=== PATIENT | female | born 1935 | race Caucasian/White ===

== ENCOUNTER 2016-11-27 10:03 | Emergency (ER) | payer MEDICARE ==
[~2016-11-27] VITALS: Ht 154.9 cm; Wt 52.0 kg
[~2016-11-27 10:03] MED LIST: ALPH200C3 PO; CARB25TA PO; CO Q100C9 PO; CURCPOW PO; DEPA125T PO; OCUVTAB PO; SYNT25TA PO; VITA200017 PO; [UNRECOGNIZED DRUG - CODE] PO
[2016-11-27 10:42] VITALS: RESP 18; TEMP 98.1
[2016-11-27 10:57] VITALS: BP_SYST 160; PULSE 95; RESP 18; TEMP 98.2; O2SAT 100
[2016-11-27] MEDS ORDERED: SINE25TA PO (11:02)
[2016-11-27] MEDS ORDERED: ALEN1TAB48 PO (11:02)
[2016-11-27] MEDS ORDERED: LEVO75TA3 PO (11:02)
[2016-11-27] MEDS ORDERED: COLA100C3 PO (11:02)
--- NOTE | 2016-11-27 11:04 | PD ---
HPI Chief Complaint: Fall Time Seen by Provider: 10:46 Travel History International Travel<30 days: No Contact w/Intl Traveler<30days: No Traveled to known affect area: No History of Present Illness HPI 81-year-old female with history of dementia, lives at an assisted care facility in a lockdown unit, was found this morning on the floor an hour after having been seen normal, patient is not able to tell staff what happened. She has ecchymosis about her right orbital area. She otherwise is able to move all 4 extremities. She is not a reliable historian. Modifying Factors: None Associated Signs & Symptoms: Fall, right eye ecchymosis, possible head injury Risk Factors: Elderly, dementia PFSH Past Medical History Heart Rhythm Problems: Yes (?) Cancer: No Cardiovascular Problems: No Chest Pain: Yes (APPROX 50% BLOCKAGE) Dementia: Yes Diabetes: No Diminished Hearing: Yes ([place]) Endocrine: No GERD: Yes Glaucoma: No Genitourinary: No Hepatitis: No Hiatal Hernia: No Hypertension: No Immune Disorder: No Medical other: Yes (SHINGLES, CERVICAL AND LUMBAR PROBLEM, HOLE IN LEFT EARDRUM ) Musculoskeletal: No Neurologic: No Parkinson's Disease: Yes Psychiatric: No Reproductive: No Respiratory: No Thyroid Disease: Yes (hypo) Menopausal: Yes Past Surgical History Abdominal Surgery: Yes (APPY-EXP LAP FOR GANGRENE OF ABDOMEN) Appendectomy: Yes Cardiac Surgery: No Ear Surgery: No Endocrine Surgery: No Eye Surgery: Yes (CATRACT EXTRACTION RIGHT EYE) Genitourinary Surgery: No Gynecologic Surgery: Yes (TOTAL ABDOMINAL HYSTERECTOMY) Hysterectomy: Yes Oral Surgery: Yes (TMJ REPAIR 2000) Pacemaker: No Thoracic Surgery: No Other Surgery: Yes (HYSTERECTOMY,APPEND) Family History Family Hypercholesterolemia: Yes Social History Alcohol Use: Yes (OCC WINE) Tobacco Use: No Substance Use: No Allergies-Medications (Allergen,Severity, Reaction): Coded Allergies: No Known Allergies (Verified , 11/27/16) Reported Meds & Prescriptions Reported Meds & Active Scripts Active Reported Mapap (Acetaminophen) 500 Mg Tab 1,000 Mg PO BID Donepezil 10 Mg Tab 10 Mg PO HS Mirtazapine 15 Mg Tab 15 Mg PO HS Alendronate (Alendronate Sodium) 70 Mg Tab 70 Mg PO Q7D ON SUNDAYS@0600 Levothyroxine (Levothyroxine Sodium) 75 Mcg Tab 75 Mcg PO DAILY @ 1000 Colace (Docusate Sodium) 100 Mg Cap 100 Mg PO BID Sinemet (Carbidopa-Levodopa) 25-100 Mg Tab 1 Tab PO TID Review of Systems ROS Limitations: Altered Mental Status (at baseline, not reliable historian) Physical Exam Narrative GENERAL: Well-nourished, well-developed elderly white female patient who is alert, awake, oriented to self, following directions, able to move all 4 extremities, not in acute distress. SKIN: Warm and dry. HEAD: Normocephalic. EYES: No scleral icterus. No injection or drainage. Right periorbital area ecchymosis. No orbital tenderness or step-offs. NECK: Supple, trachea midline. CARDIOVASCULAR: Regular rate and rhythm without murmurs, gallops, or rubs. CHEST: Nontender throughout without deformity or crepitance. No retractions or use of accessory muscles. RESPIRATORY: Breath sounds equal bilaterally. No accessory muscle use. GASTROINTESTINAL: Abdomen soft, non-tender, nondistended. Pelvis: Stable and nontender to palpation. Nontender range of motion of both hips. MUSCULOSKELETAL: No cyanosis, or edema. BACK: Nontender without obvious deformity. No CVA tenderness. EXTREMITIES: No clubbing, cyanosis, or edema. No joint tenderness, effusion, or edema noted. No obvious deformities. Data Data Last Documented VS Vital Signs Date Time Temp Pulse Resp B/P Pulse Ox O2 Delivery O2 Flow Rate FiO2 11/27/16 10:57 98.2 95 18 160/ 100 Room Air Orders Electrocardiogram (11/27/16 10:46) Complete Blood Count With Diff (11/27/16 10:46) Basic Metabolic Panel (Bmp) (11/27/16 10:46) Prothrombin Time / Inr (Pt) (11/27/16 10:46) Act Partial Throm Time (Ptt) (11/27/16 10:46) Urinalysis - C+S If Indicated (11/27/16 10:46) Ct Brain W/O Iv Contrast(Rout) (11/27/16 10:46) Ct Facial Bones W/O Iv Cont (11/27/16 10:46) Urine Culture (11/27/16 11:10) Potassium, Serum (K) (11/27/16 11:46) Labs Laboratory Tests Test 2/12/1211/27/16 11/27/16 11:00 11:10 13:00 White Blood Count 10.3 TH/MM3 Red Blood Count 3.99 MIL/MM3 Hemoglobin 12.5 GM/DL Hematocrit 36.8 % Mean Corpuscular Volume 92.1 FL Mean Corpuscular Hemoglobin 31.3 PG Mean Corpuscular Hemoglobin 34.0 % Concent Red Cell Distribution Width 14.6 % Platelet Count 285 TH/MM3 Mean Platelet Volume 7.6 FL Neutrophils (%) (Auto) 82.5 % Lymphocytes (%) (Auto) 10.1 % Monocytes (%) (Auto) 6.2 % Eosinophils (%) (Auto) 0.4 % Basophils (%) (Auto) 0.8 % Neutrophils # (Auto) 8.5 TH/MM3 Lymphocytes # (Auto) 1.0 TH/MM3 Monocytes # (Auto) 0.6 TH/MM3 Eosinophils # (Auto) 0.0 TH/MM3 Basophils # (Auto) 0.1 TH/MM3 CBC Comment DIFF FINAL Differential Comment Prothrombin Time 10.8 SEC Prothromb Time International 1.0 RATIO Ratio Activated Partial 24.0 SEC Thromboplast Time Sodium Level 139 MEQ/L Potassium Level 5.8 MEQ/L 4.3 MEQ/L Chloride Level 103 MEQ/L Carbon Dioxide Level 29.4 MEQ/L Anion Gap 7 MEQ/L Blood Urea Nitrogen 19 MG/DL Creatinine 1.09 MG/DL Estimat Glomerular Filtration 48 ML/MIN Rate Random Glucose 86 MG/DL Calcium Level 8.4 MG/DL Urine Color COLORLESS Urine Turbidity CLEAR Urine pH 7.5 Urine Specific [place] 1.004 Urine Protein NEG mg/dL Urine Glucose (UA) NEG mg/dL Urine Ketones NEG mg/dL Urine Occult Blood NEG Urine Nitrite NEG Urine Bilirubin NEG Urine Urobilinogen LESS THAN 2.0 MG/DL Urine Leukocyte Esterase NEG Urine WBC LESS THAN 1 /hpf Urine Squamous Epithelial <1 /hpf Cells Urine Bacteria MOD /hpf Urine Hyaline Casts 1 /lpf Microscopic Urinalysis Comment CULTURE INDICATED MDM Medical Decision Making Medical Screen Exam Complete: Yes Emergency Medical Condition: Yes Medical Record Reviewed: Yes Interpretation(s) EKG shows sinus rhythm at a rate of 94 bpm with no signs of acute ST-T changes. Laboratory Tests Test 11/27/16 11/27/16 11:00 11:10 Red Blood Count 3.99 MIL/MM3 (4.00-5.30) Neutrophils (%) (Auto) 82.5 % (16.0-70.0) Neutrophils # (Auto) 8.5 TH/MM3 (1.8-7.7) Activated Partial 24.0 SEC Thromboplast Time (24.3-30.1) Potassium Level 5.8 MEQ/L (3.5-5.1) Blood Urea Nitrogen 19 MG/DL (7-18) Creatinine 1.09 MG/DL (0.50-1.00) Estimat Glomerular Filtration 48 ML/MIN (>89) Rate Calcium Level 8.4 MG/DL (8.5-10.1) Urine Bacteria MOD /hpf (NONE) Last [address] 11/27/16 1046 Signed Impressions: Service Date/Time: November 11:39 - CONCLUSION: 1. There is no evidence of acute fracture. Sha Canada MD Head CT 11/27/16 1046 Signed Impressions: Service Date/Time: November 12:33 - CONCLUSION: 1. Age-related findings. 2. No acute intracranial findings. 3. Small air-fluid level right sphenoid sinus. 4. Right preorbital soft tissue edema. Joseph Rushing MD Differential Diagnosis Fall, right orbital ecchymosis, head injuryfractures versus acute intracranial injuries versus contusions Narrative Course CT of the brain and face did not reveal any signs of acute fractures or acute intracranial injuries. EKG shows no signs of dysrhythmias. Vital signs are stable in the ER. At this point, my plan would be to release the patient back to [facility]. Follow-up with primary care physician. Return for any worsening in symptoms as needed. Diagnosis Primary Impression: Fall Additional Impression: Facial contusion Disposition: 03 DISCHARGE TO SNF Condition: Stable Lennox Meyers MD Nov 27, 2016 11:04
[2016-11-27] MEDS ORDERED: DONE10TA7 PO (11:06)
[2016-11-27] MEDS ORDERED: MAPA500T PO (11:06)
[2016-11-27] MEDS ORDERED: MIRTA15 PO (11:06)
[2016-11-27 11:13] LABS: AUTOMATED NEUTROPHIL # 8.5 TH/MM3 (1.8-7.7); BASOPHIL # 0.1 TH/MM3 (0-0.2); BASOPHIL % 0.8 % (0.0-2.0); EOSINOPHIL % 0.4 % (0.0-4.0); HEMATOCRIT 36.8 % (35.0-46.0); HEMO FLAGS DIFF FINAL; LYMPH % 10.1 % (9.0-44.0); MEAN CELL VOLUME 92.1 FL (80.0-100.0); MEAN CORPUSCULAR HEMOGLOBIN 31.3 PG (27.0-34.0); MONO % 6.2 % (0.0-8.0); NEUT % 82.5 % (16.0-70.0); PLATELET COUNT 285 TH/MM3 (150-450); RED BLOOD COUNT 3.99 MIL/MM3 (4.00-5.30); RED CELL DISTRIBUTION WIDTH 14.6 % (11.6-17.2); WHITE BLOOD COUNT 10.3 TH/MM3 (4.0-11.0)
[2016-11-27 11:21] LABS: BACTERIA, URINE MOD /hpf; BLOOD, URINE NEG (NEG); GLUCOSE,URINE NEG (NEG); HYALINE CAST, URINE 1 /lpf (RARE); KETONE, URINE NEG (NEG); NITRITE,URINE NEG (NEG); PH, URINE 7.5 (5.0-8.5); SQUAMOUS EPITHELIAL CELL URINE <1 /hpf (0-5); URINE COLOR COLORLESS (YELLW/STRAW)
[2016-11-27 11:26] LABS: COMMENT (UR) CULTURE INDICATED; CULTURE IF INDICATED CULTURE INDICATED
[2016-11-27 11:27] LABS: PROTHROMBIN TIME - PATIENT 10.8 SEC (9.8-11.6)
[2016-11-27 11:36] LABS: BICARBONATE 29.4 MEQ/L (21.0-32.0)
[2016-11-27 11:46] LABS: POTASSIUM 5.8 MEQ/L (3.5-5.1)
--- NOTE | 2016-11-27 12:40 | RADRPT ---
EXAM DATE/TIME: 11/27/2016 11:39 [facility] COMPARISON: No previous studies available for comparison. INDICATIONS : Unwitnessed fall; right periorbital bruising. RADIATION DOSE: 55.62 CTDIvol (mGy) MEDICAL HISTORY : Dementia. Parkinsons. Cardiovascular disease SURGICAL HISTORY : Appendectomy. Hysterectomy. ENCOUNTER: Initial ACUITY: 1 day PAIN SCORE: 0/10 LOCATION: cranial TECHNIQUE: Volumetric scanning of the facial bones was performed. Using automated exposure control and adjustme nt of the mA and/or kV according to patient size, radiation dose was kept as low as reasonably achiev able to obtain optimal diagnostic quality images. FINDINGS: Brain atrophy is present. The sinuses are clear. There is no evidence of acute fracture. No orbital pneumatosis is identified. A spur projects off the nasal septum to the right. A janae bullosa is pre sent on the left. CONCLUSION: 1. There is no evidence of acute fracture. Sha Canada MD on November 27, 2016 at 12:37 Board Certified Radiologist. This report was verified electronically.
--- NOTE | 2016-11-27 13:34 | RADRPT ---
EXAM DATE/TIME: 11/27/2016 12:33 [facility] COMPARISON: CT BRAIN W/O CONTRAST, January 05, 2015, 14:45. INDICATIONS : Unwitnessed fall; facial injuries. RADIATION DOSE: 49.83 CTDIvol (mGy) MEDICAL HISTORY : Dementia. Parkinsons. Cardiovascular disease SURGICAL HISTORY : Appendectomy. Hysterectomy. ENCOUNTER: Initial ACUITY: 1 day PAIN SCALE: 5/10 LOCATION: cranial TECHNIQUE: Multiple contiguous axial images were obtained of the head. Using automated exposure control and adj ustment of the mA and/or kV according to patient size, radiation dose was kept as low as reasonably a chievable to obtain optimal diagnostic quality images. FINDINGS: CEREBRUM: Diffuse atrophy and chronic small vessel white matter ischemic change again seen. No evidence of midl ine shift, mass lesion, hemorrhage or acute infarction. No extra-axial fluid collections are seen. POSTERIOR FOSSA: The cerebellum and brainstem are intact. The 4th ventricle is midline. The cerebellopontine angle i s unremarkable. EXTRACRANIAL: Small air-fluid level in the right sphenoid sinus. Right preorbital soft tissue swelling. SKULL: The calvaria is intact. No evidence of skull fracture. CONCLUSION: 1. Age-related findings. 2. No acute intracranial findings. 3. Small air-fluid level right sphenoid sinus. 4. Right preorbital soft tissue edema. Joseph Rushing MD on November 27, 2016 at 13:30 Board Certified Radiologist. This report was verified electronically.
--- NOTE | 2016-11-28 13:46 | EKG ---
Date Performed: 11/27/2016 Time Performed: 11:06:24 PTAGE: 81 years EKG: Sinus rhythm WITH SINUS ARRHYTHMIA WITH SHORT FL INTERVAL POSSIBLE LEFT ATRIAL ENLARGEMENT MARKED LEFT AXIS DEVIA TION POSSIBLE RIGHT VENTRICULAR CONDUCTION DELAY ABNORMAL ECG PREVIOUS TRACING : 02/23/2016 17.08 Since previous tracing, no significant change noted DOCTOR: Lisa Quintana Interpretating Date/Time 11/28/2016 13:37:54
== END 2016-11-27 16:19 ==
LOC: NEPE 10:03 → NEDAMB 16:19
DX: S00.83XA Contusion of other part of head, initial encounter (principal); F03.90 Unspecified dementia, unspecified severity, without behavioral disturbance, psychotic disturbance, mood disturbance, and anxiety; G20 Parkinson's disease; E03.9 Hypothyroidism, unspecified; W18.30XA Fall on same level, unspecified, initial encounter; Y93.9 Activity, unspecified; Y92.9 Unspecified place or not applicable; Y99.9 Unspecified external cause status; B96.20 Unspecified Escherichia coli [E. coli] as the cause of diseases classified elsewhere
CPT/HCPCS: 70450; 70486; 80048; 81001; 84132; 85025; 85610; 85730; 87077; 87086; 87186; 93005

== ENCOUNTER 2016-12-05 16:37 | Emergency (ER) | payer MEDICARE ==
[~2016-12-05] VITALS: Ht 152.4 cm; Wt 45.0 kg
[~2016-12-05 16:37] MED LIST changes: +ALEN1TAB48 PO; -ALPH200C3 PO; -CARB25TA PO; -CO Q100C9 PO; +COLA100C3 PO; -CURCPOW PO; -DEPA125T PO; +DONE10TA7 PO; +LEVO75TA3 PO; +MAPA500T PO; +MIRTA15 PO; -OCUVTAB PO; +SINE25TA PO; -SYNT25TA PO; -VITA200017 PO; -[UNRECOGNIZED DRUG - CODE] PO
[2016-12-05] MEDS ORDERED: ROCE1INJ3 IM (16:48)
[2016-12-05 16:50] VITALS: BP 153/75; PULSE 89; RESP 16; TEMP 98; O2SAT 96
--- NOTE | 2016-12-05 17:01 | PD ---
HPI Chief Complaint: Complaint Time Seen by Provider: 16:44 Travel History International Travel<30 days: No Contact w/Intl Traveler<30days: No Traveled to known affect area: No History of Present Illness HPI This 81-year-old female is sent from a [facility]. She is some question of altered mental status. There is also concerned about a urinary tract infection. The patient does have a history of dementia. She was seen in the emergency department a week ago after a fall. She did bruise the right side of her face. She had CT scans of the brain and the face which were negative at that time. According to the [facility] she has been diagnosed with urinary tract infection. Her urine when she was here on November 27 showed moderate bacteria but no white cells. She is supposed to be taking antibiotics but has been refusing them. She was given an injection of Rocephin earlier today. PFSH Past Medical History Heart Rhythm Problems: Yes (?) Cancer: No Cardiovascular Problems: No Chest Pain: Yes (APPROX 50% BLOCKAGE) Dementia: Yes Diabetes: No Diminished Hearing: Yes ([facility]) Endocrine: No GERD: Yes Glaucoma: No Genitourinary: No Hepatitis: No Hiatal Hernia: No Hypertension: No Immune Disorder: No Musculoskeletal: No Neurologic: No Parkinson's Disease: Yes Psychiatric: No Reproductive: No Respiratory: No Thyroid Disease: Yes (hypo) ?: Not Menopausal: Yes Past Surgical History Abdominal Surgery: Yes (APPY-EXP LAP FOR GANGRENE OF ABDOMEN) Appendectomy: Yes Cardiac Surgery: No Ear Surgery: No Endocrine Surgery: No Eye Surgery: Yes (CATRACT EXTRACTION RIGHT EYE) Genitourinary Surgery: No Gynecologic Surgery: Yes (TOTAL ABDOMINAL HYSTERECTOMY) Hysterectomy: Yes Oral Surgery: Yes (TMJ REPAIR 2000) Pacemaker: No Thoracic Surgery: No Other Surgery: Yes (HYSTERECTOMY,APPEND) Family History Family Hypercholesterolemia: Yes Social History Alcohol Use: Yes (OCC WINE) Tobacco Use: No Substance Use: No Allergies-Medications (Allergen,Severity, Reaction): Coded Allergies: *MDRO Multi-Drug Resistant Organism (Verified Adverse Reaction, Unknown, ) MDR-E.Coli (urine)-11/27/16 Reported Meds & Prescriptions Reported Meds & Active Scripts Active Reported Rocephin Inj (Ceftriaxone Sodium) 1 Gm Inj 1 Gm IM ONCE Mapap (Acetaminophen) 500 Mg Tab 1,000 Mg PO BID Donepezil 10 Mg Tab 10 Mg PO HS Mirtazapine 15 Mg Tab 15 Mg PO HS Alendronate (Alendronate Sodium) 70 Mg Tab 70 Mg PO Q7D ON SUNDAYS@0600 Levothyroxine (Levothyroxine Sodium) 75 Mcg Tab 75 Mcg PO DAILY @ 1000 Colace (Docusate Sodium) 100 Mg Cap 100 Mg PO BID Sinemet (Carbidopa-Levodopa) 25-100 Mg Tab 1 Tab PO TID Review of Systems ROS Limitations: Altered Mental Status Physical Exam Narrative GENERAL: Well-developed female. She has bruising on the right side of her face SKIN: Warm and dry. HEAD: Right-sided facial bruising. Normocephalic. EYES: Pupils equal and round. No scleral icterus. No injection or drainage. ENT: No nasal bleeding or discharge. Mucous membranes pink and moist. NECK: Trachea midline. No JVD. He complains of pain with palpation of the neck posteriorly and on the right side CARDIOVASCULAR: Regular rate and rhythm. No murmur appreciated. RESPIRATORY: No accessory muscle use. Clear to auscultation. Breath sounds equal bilaterally. GASTROINTESTINAL: Abdomen soft, non-tender, nondistended. Hepatic and splenic margins not palpable. MUSCULOSKELETAL: No obvious deformities. No clubbing. No cyanosis. No edema. NEUROLOGICAL: Awake and alert. No obvious cranial nerve deficits. Motor grossly within normal limits. Speech is clear but she is quite confused. She does not know where she lives. Sheis in the hospital. She says she lives at home with her parents PSYCHIATRIC: Severe confusion Data Data Last Documented VS Vital Signs Date Time Temp Pulse Resp B/P Pulse Ox O2 Delivery O2 Flow Rate FiO2 12/05/16 19:05 104 18 12/05/16 19:05 149/78 94 Room Air 12/05/16 16:50 98.0 Orders Complete Blood Count With Diff (12/05/16 16:54) Comprehensive Metabolic Panel (12/05/16 16:54) Lactic Acid Sepsis Protocol (12/05/16 16:54) Urinalysis - C+S If Indicated (12/05/16 16:54) Blood Culture (12/05/16 16:54) Chest, Single Ap (12/05/16 16:54) Blood Glucose (12/05/16 16:54) Iv Access Insert/Monitor (12/05/16 16:54) Ct Brain W/O Iv Contrast(Rout) (12/05/16 16:54) Ct Cerv Spine W/O Contrast (12/05/16 16:54) Cath For Specimen (12/05/16 16:56) Urine Culture (12/05/16 17:56) Ondansetron Inj (Zofran Inj) (12/05/16 19:00) Morphine Inj (Morphine Inj) (12/05/16 19:00) Labs Laboratory Tests Test 12/05/16 12/05/16 17:30 17:56 White Blood Count 12.7 TH/MM3 Red Blood Count 4.04 MIL/MM3 Hemoglobin 12.4 GM/DL Hematocrit 36.5 % Mean Corpuscular Volume 90.2 FL Mean Corpuscular Hemoglobin 30.7 PG Mean Corpuscular Hemoglobin 34.0 % Concent Red Cell Distribution Width 13.5 % Platelet Count 247 TH/MM3 Mean Platelet Volume 7.8 FL Neutrophils (%) (Auto) 74.5 % Lymphocytes (%) (Auto) 8.4 % Monocytes (%) (Auto) 7.8 % Eosinophils (%) (Auto) 0.6 % Basophils (%) (Auto) 8.7 % Neutrophils # (Auto) 9.4 TH/MM3 Lymphocytes # (Auto) 1.1 TH/MM3 Monocytes # (Auto) 1.0 TH/MM3 Eosinophils # (Auto) 0.1 TH/MM3 Basophils # (Auto) 1.1 TH/MM3 CBC Comment AUTO DIFF Differential Comment AUTO DIFF CONFIRMED Platelet Estimate NORMAL Platelet Morphology Comment NORMAL Sodium Level 140 MEQ/L Potassium Level 3.9 MEQ/L Chloride Level 102 MEQ/L Carbon Dioxide Level 31.7 MEQ/L Anion Gap 6 MEQ/L Blood Urea Nitrogen 26 MG/DL Creatinine 0.76 MG/DL Estimat Glomerular Filtration 73 ML/MIN Rate Random Glucose 104 MG/DL Lactic Acid Level 1.2 mmol/L Calcium Level 8.1 MG/DL Total Bilirubin 0.6 MG/DL Aspartate Amino Transf 17 U/L (AST/SGOT) Alanine Aminotransferase 56 U/L (ALT/SGPT) Alkaline Phosphatase 326 U/L Total Protein 6.4 GM/DL Albumin 2.2 GM/DL Urine Color YELLOW Urine Turbidity CLEAR Urine pH 6.5 Urine Specific [place] 1.024 Urine Protein 100 mg/dL Urine Glucose (UA) NEG mg/dL Urine Ketones NEG mg/dL Urine Occult Blood TRACE Urine Nitrite POS Urine Bilirubin NEG Urine Leukocyte Esterase NEG Urine WBC 6-8 /hpf Urine WBC Clumps FEW Urine Squamous Epithelial 0-3 /hpf Cells Urine Bacteria RARE /hpf Microscopic Urinalysis Comment CULTURE INDICATED MDM Medical Decision Making Medical Screen Exam Complete: Yes Emergency Medical Condition: Yes Medical Record Reviewed: Yes Differential Diagnosis Differential includes UTI, sepsis, pneumonia, dementia Narrative Course CT of the head and neck are negative for acute injury. White count is 12,000. Chest x-ray shows a small area of the right face which may be atelectasis or small and draped. Urine shows 6-8 white cells. Patient is stable for discharge. She has been somewhat cantankerous and uncooperative. She apparently was refusing her medications at the [facility]. He was given a gram of Rocephin IM today. I think it would be reasonable to give her Rocephin for 2 more days for treatment of partially treated UTI Diagnosis Primary Impression: UTI (urinary tract infection) Additional Instructions: give rocephin 1 gram im daily for 2 more days Disposition: 03 DISCHARGE TO SNF Condition: Stable Randall Lew MD Dec 05, 2016 17:01
[2016-12-05 17:40] LABS: AUTOMATED NEUTROPHIL # 9.4 TH/MM3 (1.8-7.7); BASOPHIL # 1.1 TH/MM3 (0-0.2); BASOPHIL % 8.7 % (0.0-2.0); EOSINOPHIL # 0.1 TH/MM3 (0-0.4); EOSINOPHIL % 0.6 % (0.0-4.0); HEMATOCRIT 36.5 % (35.0-46.0); LYMPH % 8.4 % (9.0-44.0); LYMPHOCYTE # 1.1 TH/MM3 (1.0-4.8); MEAN CELL VOLUME 90.2 FL (80.0-100.0); MEAN CORPUSCULAR HEMOGLOBIN 30.7 PG (27.0-34.0); MONO % 7.8 % (0.0-8.0); NEUT % 74.5 % (16.0-70.0); PLATELET COUNT 247 TH/MM3 (150-450); RED BLOOD COUNT 4.04 MIL/MM3 (4.00-5.30); RED CELL DISTRIBUTION WIDTH 13.5 % (11.6-17.2); WHITE BLOOD COUNT 12.7 TH/MM3 (4.0-11.0)
--- NOTE | 2016-12-05 17:42 | RADHPO ---
EXAM DATE/TIME: 12/05/2016 17:19 [facility] COMPARISON: CHEST SINGLE AP, March 05, 2016, 8:19. INDICATIONS : Fever. MEDICAL HISTORY : Hypothyroidism. Gastroesophageal reflux disease. Dementia, Parkinson's disease SURGICAL HISTORY : Appendectomy. Hysterectomy. ORIF right wrist ENCOUNTER: Initial ACUITY: 1 day PAIN SCORE: 7/10 LOCATION: Bilateral chest FINDINGS: There is patchy opacity within the right lung base consistent with atelectasis and /or infiltrate. Clinical correlation is recommended. The left lung is clear. The heart is normal. CONCLUSION: Patchy opacity within the right lung base consistent with atelectasis and/or infiltra te. Clinical correlation is recommended. Mirza Fowler MD on December 05, 2016 at 17:38 Board Certified Radiologist. This report was verified electronically.
[2016-12-05 17:49] LABS: CHLORIDE 102 MEQ/L (98-107); POTASSIUM 3.9 MEQ/L (3.5-5.1); SODIUM (NA) 140 MEQ/L (136-145)
[2016-12-05 17:54] LABS: ANION GAP 6 MEQ/L (5-15); BICARBONATE 31.7 MEQ/L (21.0-32.0)
[2016-12-05 17:55] LABS: BLOOD UREA NITROGEN 26 MG/DL (7-18)
[2016-12-05 17:57] LABS: ALT (GPT) 56 U/L (10-53); AST (GOT) 17 U/L (15-37)
[2016-12-05 17:58] LABS: GLOMERULAR FILTRATION RATE 73 ML/MIN (>89)
[2016-12-05 17:59] LABS: TOTAL BILIRUBIN ADULT 0.6 MG/DL (0.2-1.0)
[2016-12-05 18:00] LABS: ALKALINE PHOSPHATASE 326 U/L (45-117); HEMO FLAGS AUTO DIFF
[2016-12-05 18:04] LABS: BLOOD, URINE TRACE (NEG); GLUCOSE,URINE NEG (NEG); KETONE, URINE NEG (NEG); PH, URINE 6.5 (5.0-8.5)
[2016-12-05 18:12] VITALS: BP 163/89; PULSE 101; RESP 16; O2SAT 100
[2016-12-05 18:29] LABS: NITRITE,URINE POS (NEG)
[2016-12-05 18:39] LABS: URINE COLOR YELLOW (YELLW/STRAW)
[2016-12-05 18:43] LABS: BACTERIA, URINE RARE /hpf; COMMENT (UR) CULTURE INDICATED; CULTURE IF INDICATED CULTURE INDICATED; SQUAMOUS EPITHELIAL CELL URINE 0-3 /hpf (0-5)
--- NOTE | 2016-12-05 18:59 | RADHPO ---
EXAM DATE/TIME: 12/05/2016 18:22 [facility] COMPARISON: No previous studies available for comparison. INDICATIONS : Altered mental status. RADIATION DOSE: 61.21 CTDIvol (mGy) MEDICAL HISTORY : Dementia. Parkinsons. SURGICAL HISTORY : Cataract extraction. ENCOUNTER: Initial ACUITY: 1 day PAIN SCALE: 0/10 LOCATION: cranial TECHNIQUE: Multiple contiguous axial images were obtained of the head. Using automated exposure control and adj ustment of the mA and/or kV according to patient size, radiation dose was kept as low as reasonably a chievable to obtain optimal diagnostic quality images. FINDINGS: There is atrophy and white matter ischemic change similar to prior exam. Ventricular size prominent b ut stable. Mucosal thickening ethmoid air cells and right sphenoid sinus. CONCLUSION: 1. Chronic atrophy and white matter ischemic changes. Mucosal thickening in the paranasal sinuses. Allen Chu MD on December 05, 2016 at 18:55 Board Certified Radiologist. This report was verified electronically.
[2016-12-05] MEDS ORDERED: MORPHINE SULFATE 4 MG/ML INJ IV PUSH ONE (19:00)
[2016-12-05] MEDS ORDERED: ONDANSETRON HCL 4 MG/2 ML VIAL IV PUSH ONE (19:00)
[2016-12-05 19:05] VITALS: BP 149/78; PULSE 103; RESP 18; O2SAT 94
[2016-12-05 19:16] LABS: PLATELET ESTIMATE SMEAR NORMAL (NORMAL); PLATELET MORPHOLOGY NORMAL (NORMAL); SCAN/DIFF AUTO DIFF CONFIRMED
--- NOTE | 2016-12-05 19:28 | RADHPO ---
EXAM DATE/TIME: 12/05/2016 18:22 [facility] COMPARISON: No previous studies available for comparison. INDICATIONS : Posterior neck pain. RADIATION DOSE: 26.35 CTDIvol (mGy) MEDICAL HISTORY : Parkinson's. Dementia. SURGICAL HISTORY : Cataract extraction. ENCOUNTER: Initial ACUITY: 1 day PAIN SCALE: 6/10 LOCATION: neck TECHNIQUE: Volumetric scanning of the cervical spine was performed. Multiplanar reconstructions in the sagittal, coronal and oblique axial planes were performed. Using automated exposure control and adjustment o f the mA and/or kV according to patient size, radiation dose was kept as low as reasonably achievable to obtain optimal diagnostic quality images. FINDINGS: No acute fracture or spondylolisthesis. Moderate to severe degenerative disc disease in lower cervica l spine. No prevertebral soft tissue swelling. CONCLUSION: 1. No acute bony abnormalities. Allen Chu MD on December 05, 2016 at 19:23 Board Certified Radiologist. This report was verified electronically.
[2016-12-05 20:13] VITALS: BP 119/62; PULSE 92; RESP 18; O2SAT 100
[2016-12-05 21:21] VITALS: BP 116/66; PULSE 95; RESP 18; O2SAT 97
[2016-12-05 22:37] VITALS: BP 115/60; PULSE 92; RESP 18; O2SAT 96
== END 2016-12-05 22:53 ==
LOC: PHED 16:37
DX: N39.0 Urinary tract infection, site not specified (principal); F03.90 Unspecified dementia, unspecified severity, without behavioral disturbance, psychotic disturbance, mood disturbance, and anxiety; G20 Parkinson's disease; E07.9 Disorder of thyroid, unspecified; K21.9 Gastro-esophageal reflux disease without esophagitis
CPT/HCPCS: 51703; 70450; 71010; 72125; 80053; 81001; 83605; 85025; 87040; 87086; 96374; 96375; 99284; J2270; J2405